=== PATIENT | female | born 1955 | race Caucasian/White ===

== ENCOUNTER 2016-10-03 12:57 | Emergency (ER) | payer OTHER ==
[~2016-10-03] VITALS: Ht 160 cm; Wt 64.6 kg
[~2016-10-03 12:57] MED LIST: CARISOPRODOL350 MG PO; CIPRO500 MG PO; CYCLOBENZAPRINE10 MG PO; DILAUDID2 MG PO; DURAGESIC25 MCG TD; FENTANYL1 EAC5 TD; FLOMAX0.4 MG PO; KEFLEX500 MG PO; NAPROSYN500 MG PO; ONDANSETRON HCL4 MG PO; PREDNISONE50 MG PO; PROVENTIL HFA6.7 GM IH; ULTRAM50 MG PO; VALIUM5 MG PO; ZITHROMAX Z-PA250 MG PO
[2016-10-03 13:05] VITALS: BP 134/102
[2016-10-03] MEDS ORDERED: LIDODERM 5% P1 PATCH TD (15:01)
== END 2016-10-03 15:20 | disposition home or self-care (01) ==
LOC: EME 12:57
DX: Z76.0 Encounter for issue of repeat prescription (principal); M54.9 Dorsalgia, unspecified; G89.29 Other chronic pain; F17.210 Nicotine dependence, cigarettes, uncomplicated; J45.909 Unspecified asthma, uncomplicated; I10 Essential (primary) hypertension
CPT/HCPCS: 99281; 99284; J1885

== ENCOUNTER 2016-10-20 19:29 | Emergency (ER) | payer OTHER ==
[~2016-10-20] VITALS: Ht 160 cm; Wt 64.7 kg
[~2016-10-20 19:29] MED LIST changes: +LIDODERM 5% P1 PATCH TD
[2016-10-20 20:38] LABS: ADD MIUA? YES; BILIRUBIN NEGATIVE; BLOOD MODERATE; COLOR AMBER ((YELLOW)); GLUCOSE (STRIP) NEGATIVE; KETONES NEGATIVE; LEUKOCYTES LARGE; NITRITE POSITIVE; PROTEIN (STRIP) 100
[2016-10-20 20:50] LABS: RED BLOOD CELLS TNTC /HPF (0-5); WHITE BLOOD CELLS TNTC /HPF (0-5)
[2016-10-20 20:51] LABS: UCUL ADDED? YES
[2016-10-20 23:05] VITALS: BP 110/76
== END 2016-10-20 23:05 | disposition home or self-care (01) ==
LOC: EME → EDBD 19:29 → EME 19:29
PROVIDERS: Emergency Medicine
DX: N12 Tubulo-interstitial nephritis, not specified as acute or chronic (principal); F11.23 Opioid dependence with withdrawal; F17.200 Nicotine dependence, unspecified, uncomplicated; Z87.442 Personal history of urinary calculi; I10 Essential (primary) hypertension; J45.909 Unspecified asthma, uncomplicated
CPT/HCPCS: 81003; 87077; 87086; 87186; 99281; 99285; J0692; J2270; J7030; J7050

== ENCOUNTER 2017-04-30 19:59 | Observation (INO) | payer OTHER ==
[~2017-04-30] VITALS: Ht 157.5 cm; Wt 68.6 kg
[2017-04-30 20:27] LABS: HEMATOCRIT 41.5 % (36.0-46.0); MCH 32.9 PG (29.0-34.0); MCHC 34.5 G/DL (30.0-36.0); MCV 95.4 FL (83-99); MEAN PLAT.VOLUME 9.8 uM^3 (9.5-12.4); PLATELET COUNT 252 K/uL (156-360); RBC DIS.WIDTH-CV 12.7 % (11.8-14.6); RBC DIS.WIDTH-SD 45.1 % (39-53); RED BLOOD COUNT 4.35 M/uL (3.80-5.20); WHITE BLOOD COUNT 8.2 K/uL (4.1-10.2)
[2017-04-30 20:34] LABS: CHLORIDE 108 mEq/L (99-109); POTASSIUM 4.3 mEq/L (3.7-5.4); SODIUM 140 mEq/L (136-147)
[2017-04-30 20:36] LABS: GLUCOSE 116 mg/dL (70-99)
[2017-04-30 20:37] LABS: ANION GAP 7 MEQ/L (2-14)
[2017-04-30 20:40] LABS: GFR ESTIMATE (CALCULATED) > 59 mL/min/
[2017-04-30 20:41] LABS: UREA NITROGEN (BUN) 18 mg/dL (9-23)
[2017-04-30 20:47] LABS: TROP-I INTERPRETATION NEGATIVE; TROPONIN-I < 0.01 ng/mL (0.0-0.30)
[2017-04-30] MEDS ORDERED: LISINOPRIL10 MG PO (22:54)
[2017-04-30] MEDS ORDERED: PROCTOCREAM-HC30 GM PR (22:55)
[2017-04-30] MEDS ORDERED: VENTOLIN HFA18 GM IH (22:55)
[2017-04-30] MEDS ORDERED: HYDROMORPHONE HC2 MG PO (22:55)
[2017-04-30] MEDS ORDERED: TIZANIDINE HCL4 MG PO (22:56)
[2017-04-30] MEDS ORDERED: OXYBUTYNIN CHLO10 MG PO (22:56)
[2017-04-30] MEDS ORDERED: MELOXICAM15 MG PO (22:56)
[2017-04-30] MEDS ORDERED: LATUDA20 MG PO (22:57)
[2017-04-30] MEDS ORDERED: SERTRALINE HCL50 MG PO (22:57)
[2017-04-30] MEDS ORDERED: ALENDRONATE SOD70 MG PO (22:57)
[2017-05-01 01:21] VITALS: BP 126/82
[2017-05-01 03:04] LABS: TROP-I INTERPRETATION NEGATIVE; TROPONIN-I < 0.01 ng/mL (0.0-0.30)
[2017-05-01 03:48] VITALS: BP 120/71
[2017-05-01 05:06] LABS: METH RESISTANT S AUREUS PCR NEGATIVE (NEGATIVE)
[2017-05-01 05:10] LABS: PROBE CHECK PASS; SPECIMEN PROCESSING CONTROL PASS
[2017-05-01 08:00] VITALS: BP 124/72
[2017-05-01 09:21] LABS: TROP-I INTERPRETATION NEGATIVE; TROPONIN-I < 0.01 ng/mL (0.0-0.30)
[2017-05-01 12:18] VITALS: BP 97/71
[2017-05-01] MEDS ORDERED: ASPIR 8181 M1 PO (13:22)
[2017-05-01 13:43] LABS: TROP-I INTERPRETATION NEGATIVE; TROPONIN-I < 0.01 ng/mL (0.0-0.30)
== END 2017-05-01 15:38 | disposition home or self-care (01) ==
LOC: EME 19:59 → EDOF 23:00 → 5WEST 23:00 → EDOF 23:00 → ENRESERV 23:43 → 5WEST 05-01 01:07
PROVIDERS: Family Medicine
DX: R07.9 Chest pain, unspecified (principal); J06.9 Acute upper respiratory infection, unspecified; I10 Essential (primary) hypertension; F17.210 Nicotine dependence, cigarettes, uncomplicated; J45.909 Unspecified asthma, uncomplicated; G89.29 Other chronic pain; M54.9 Dorsalgia, unspecified; M19.90 Unspecified osteoarthritis, unspecified site; M47.816 Spondylosis without myelopathy or radiculopathy, lumbar region; Z88.0 Allergy status to penicillin; Z88.5 Allergy status to narcotic agent; Z88.8 Allergy status to other drugs, medicaments and biological substances
CPT/HCPCS: 71020; 80048; 84484; 85027; 87641; 93005; 94640; 99202; G0378; J2270